=== PATIENT | male | born 1975 | race Caucasian/White ===

== ENCOUNTER 2023-09-17 14:34 | Outpatient (OUT) | payer OTHER, SELFPAY ==
[2023-09-17 14:53] LABS: Basophils Absolute Auto 0.1 10^3/uL (0.0-0.1); Basophils Percent Auto 0.6 % (0.2-2.0); Eosinophils Absolute Auto 1.3 10^3/uL (0.0-0.7); Eosinophils Percent Auto 14.2 % (0.9-7.0); Hematocrit 47.5 % (42.0-54.0); Hemoglobin 15.6 g/dL (14.0-18.0); Immature Granulocytes Abs Auto 0.02 10^3/uL (0.00-0.03); Immature Granulocytes Pct Auto 0.2 % (0.0-0.5); Lymphocytes Percent Auto 32.1 % (20.5-60.0); Mean Corpuscular HGB Conc 32.8 g/dL (29.9-35.2); Mean Corpuscular Hemoglobin 30.8 pg (25.9-34.0); Mean Corpuscular Volume 93.7 fL (80.0-94.0); Mean Platelet Volume 8.6 fL (9.5-13.5); Monocytes Absolute Auto 0.6 10^3/uL (0.3-0.8); Monocytes Percent Auto 6.6 % (1.7-12.0); Neutrophils Absolute Auto 4.3 10^3/uL (1.4-6.5); Neutrophils Percent Auto 46.3 % (43.0-75.0); Platelet Count 284 10^3/uL (150-450); Red Blood Count 5.07 10^6/uL (4.70-6.10); White Blood Count 9.4 10^3/uL (4.0-11.0)
[2023-09-17 15:08] LABS: Anion Gap 15.1; BUN Creatinine Ratio 19.6; Calcium 9.7 mg/dL (8.5-10.1); Carbon Dioxide 27.7 mmol/L (21.0-32.0); Chloride 102 mmol/L (98-107); Estimated GFR (African America >60 (>=60); Estimated GFR (Non-African Ame >60 (>=60); Glucose 98 mg/dL (74-106); Potassium 3.8 mmol/L (3.5-5.1); Sodium 141 mmol/L (136-145)
== END 2023-09-17 14:35 | disposition home or self-care (01) ==
LOC: LAB 14:34
PROVIDERS: PCP Family Medicine
DX: J45.42 Moderate persistent asthma with status asthmaticus (principal); J82.83 Eosinophilic asthma
CPT/HCPCS: 36415; 80048; 85025

== ENCOUNTER 2023-09-18 12:38 | Outpatient (OUT) | payer OTHER, SELFPAY ==
--- NOTE | 2023-09-18 13:00 | RT_ITS ---
[facility] Test Date: 2023-09-18 Pat Name: BERRY CRISOSTOMO Department: Room: - Gender: Male Facial Operator: Chelita Oliveira RRT : 1975 Requested By: [id number] Order Number: [id number] Reading MD: Rocky Veliz Interpretive Statements Spirometry was completed according to ATS criteria. Findings were considered accurate and reproducible. No bronchodilator was administered due to normal spirometric values. No prior studies available for comparison. Spirometry (based on pre-bronchodilator values): -FEV1/FVC: Reduced @ 42% -FEV1: Severely reduced @ 43% -FVC: Normal @ 81% -GJB03-60%: Reduced @ 13% -There is a positive bronchodilator response in FEV1. Flow-volume loop: -Severe obstructive pattern Impressions: -Spirometry suggests severe obstruction. There is a positive bronchodilator response. This testing would be consistent with asthma. Clinical correlation required. Electronically Signed On 09-23-2023 7:18:45 EDT by Rocky Veliz
[2023-09-18] MEDS: ALBUTEROL SULFATE 2.5 MG/3 ML VIAL NEB IH (13:14)
== END 2023-09-18 12:39 | disposition home or self-care (01) ==
LOC: CARD 12:39
PROVIDERS: PCP Family Medicine
DX: J45.42 Moderate persistent asthma with status asthmaticus (principal); J82.83 Eosinophilic asthma
CPT/HCPCS: 94060